=== PATIENT | female | born 1955 | race Caucasian/White ===

== ENCOUNTER 2017-02-06 13:33 | Emergency (ER) | payer MEDICARE, MEDICAID ==
[~2017-02-06 13:33] MED LIST: ASA CHILDREN'S81 MG PO; ATARAX-DPS25 MG PO; ATIVAN-DPS1 MG PO; DESYREL DPS100 MG PO; DOK100 MG PO; FENOFIBRATE160 MG PO; FLONASE 0.05% D16 GM NS; LAMICTAL DPS100 MG PO; MAALOX DPS30 ML PO; NEURONTIN DPS100 MG PO; NEURONTIN DPS300 MG PO; NORCO 5-325 TA1 EACH PO; OMEPRAZOLE20 MG PO; PEPCID DPS20 MG PO; POTASSIUM CHLO20 ME2 PO; PRISTIQ ER100 MG PO; PROVENTIL2.5 MG/3 M IH; SEROQUEL DPS300 MG PO; SURFAK DPS240 MG PO; TIAZAC180 MG PO; TOPAMAX100 MG PO; TYLENOL DPS325 MG PO; VIBRAMYCIN-DPS100 M2 PO; VITAMIN D50000 UNIT PO; [UNRECOGNIZED DRUG - OTHER] PO
--- NOTE | 2017-02-12 16:16 | ER ---
ADMIT: 02/06/2017 RM/LOC: ER [facility] MR#: [id number] [id number] [place], [place] [id number] [place] FABIENNE [facility] [address] Emergency Room Report SEX: F AGE: 61 : 1955 DATE: 02/06/2017 PRIMARY CARE PHYSICIAN: Pancho Cortes MD BRIEF ADDENDUM: Please see my T-sheet for complete review of systems, past medical history, social history, and physical exam. CHIEF COMPLAINT: Fall. HISTORY OF PRESENT ILLNESS: This is a 61-year-old female, who presents to the ER after she fell at [employer]. 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 States she missed a curb and tripped falling from a standing position. States she fell primarily on her left side and twisted her back. She also complains of low back pain, right wrist pain, and bilateral knee pain. States she did not lose consciousness. She remembers coming to the hospital. She does have a headache right now. She has a history of chronic back pain. She has known degenerative spine disease as well as cervical spine disk herniations. She does have some weakness and numbness on the right side secondary to her previous CVA. PAST MEDICAL HISTORY: Significant for anxiety, depression, and chronic pain. She is currently being treated for a "gum infection" with Levaquin and Tylenol No. 3, which she last took at 0800 hours this morning. She does smoke two packs a day. COURSE IN THE EMERGENCY ROOM: GENERAL: The patient was seen and examined. She is afebrile and nontoxic. She is in moderate amount of distress, complaining of pain with any movement. She was able to ambulate with a wheeled walker today. HEAD: No evidence of trauma. NECK: She does have some tenderness at C3-C4-C5 consistent with her known history of C3-C4-C5 disk herniation. She has a full range of motion. Does not elicit any numbness and tingling in the extremities. EYES: Pupils are equal and reactive to light. Extraocular muscles are intact. ABDOMEN: Nontender. NEURO: She is oriented x4. She does have right-sided weakness and sensory changes secondary to her CVA. BACK: She does have vertebral tenderness, especially in the lumbar spine but also the cervical region as previously discussed. Significant for bilateral muscle spasm in the lower back. EXTREMITIES: Pelvis was stable. Hips nontender. No pedal edema. She has some tenderness over the right wrist. Unable to give exact location. Any palpation elicits pain. Same for bilateral knees primarily. Anterior tenderness. No real point tenderness. I did obtain x-rays of the bilateral knees, right wrist, and lumbar spine. All negative for any acute fracture. She was given 4 of morphine, 4 mg Zofran ODT, as well as 5 mg of Valium p.o. ADMIT: 02/06/2017 RM/LOC: [facility] MR#: [id number] [address] [id number] FABIENNE CORONADO [address] [place] [address] Emergency Room Report SEX: F AGE: 61 : 1955 IMPRESSION: 1. Bilateral knee contusions 2. Lumbar spine strain 3. Right wrist sprain $. History of chronic pain DISPOSITION: The patient currently has medications at home for controlling her pain. I told her she can use this and follow up with her primary care if this is not enough. Activity as tolerated. Continue all home medications. Certainly return with any worsening signs or symptoms. Apply ice as needed for pain. She is to use her wheeled walker when she is up. Follow up with Dr. Cortes as needed. Questions sought and answered to the best of my ability and to the patient's satisfaction. Discharged from the department in stable condition. JHOANA Zapata / Kilo Johnson MD / luz elena JOB #: [id number] CC: Kilo Johnson MD, Attending Physician Pancho Cortes MD, Family Physician
== END 2017-02-06 15:25 | disposition home or self-care (01) ==
LOC: ER 13:33
DX: S63.501A Unspecified sprain of right wrist, initial encounter (principal); S33.5XXA Sprain of ligaments of lumbar spine, initial encounter; S80.02XA Contusion of left knee, initial encounter; S80.01XA Contusion of right knee, initial encounter; F41.9 Anxiety disorder, unspecified; F32.9 Major depressive disorder, single episode, unspecified; I10 Essential (primary) hypertension; F17.210 Nicotine dependence, cigarettes, uncomplicated; Z86.73 Personal history of transient ischemic attack (TIA), and cerebral infarction without residual deficits; W01.0XXA Fall on same level from slipping, tripping and stumbling without subsequent striking against object, initial encounter